=== PATIENT | male | born 1965 ===

== ENCOUNTER 2016-06-22 13:34 | Emergency (ER) | payer SELFPAY ==
[~2016-06-22] VITALS: Wt 80.0 kg
--- NOTE | 2016-06-22 14:24 | RADRPT ---
PROCEDURE: CT Brain without contrast. CLINICAL INDICATION: Head injury after a fall 1 week ago. TECHNIQUE: A CT of the brain was performed on a high-resolution CT scanner utilizing a low dose te chnique with axial imaging from the skull base through the vertex without IV contrast. Multiplanar reformatted images were made. Images were reviewed on a PACS workstation. The CTDIvol is 44.3 mGy and the DLP is 620.2 mGycm. One or more of the following dose reduction techniques were used: - Automated exposure control. - Adjustment of the mA and/or kV according to patient size. Use of iterative reconstruction technique. COMPARISON: None FINDINGS: The fourth ventricle is normal in size. The third and lateral ventricles are normal in size and con figuration. The brain parenchyma is normal. The visible portions of the globes and extraocular muscles are normal. The paranasal sinuses are cl ear. The mastoid air cells and internal auditory canals are normal. The bony calvarium is intact. IMPRESSION: 1. Negative CT scan of the brain without contrast. RPTAT:AAJJ Physician Jaspal Date Time Electronically viewed and signed by Physician Jaspal on 06/22/2016 14:24 HAILE/
[2016-06-22] MEDS ORDERED: ACETAMINOPHEN 500 MG TAB PO STA (14:36)
[2016-06-22] MEDS ORDERED: ACET500C5 PO (15:00)
[2016-06-22] MEDS ORDERED: CEPH-443 PO (15:01)
--- NOTE | 2016-06-22 15:17 | ERD ---
ER Documentation Chief Complaint Date/Time DATE: 06/22/16 TIME: 15:09 Chief Complaint hit on head 5 days ago with laceration to right orbit. no bleeding noted. HPI Patient is a 51-year-old male who presents to the emergency department with head pain and laceration to his upper left orbital region 1 week. 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 Patient states that he was breaking down the dry wall and his ladder slipped causing his to fall. Patient states he did not receive any medical attention. Patient states he has been putting aloe vera to his laceration. Patient denies any fevers or chills. Patient denies any nausea, vomiting, blurry vision, excessive sleepiness, loss of consciousness. Patient does report "feeling warm inside of his head". Patient denies any chest pain, shortness of breath, diaphoresis, neck pain, back pain. Patient is ambulating without any difficulty. Patient is speaking in full sentences.. Patient does not recall last tetanus vaccination. ROS All systems reviewed and are negative except as per history of present illness. Medications Home Meds Active Scripts Cephalexin* (Keflex*) 500 Mg Capsule, 500 MG PO QID for 7 Days, CAP Prov:MEHRAN CULLEN PA-C 06/22/16 Acetaminophen* (Tylophen*) 500 Mg Capsule, 1 CAP PO Q6H Y for PAIN AND OR ELEVATED TEMP, #20 CAP Prov:MEHRAN CULLEN PA-C 06/22/16 PMhx/Soc Medical and Surgical Hx: pt denies Medical Hx, pt denies Surgical Hx Hx Alcohol Use: No Hx Substance Use: No Hx Tobacco Use: Yes (5 CIGS/DAY) Smoking Status: Current every day smoker FmHx Family History: No diabetes Physical Exam Vitals Vital Signs Date Time Temp Pulse Resp B/P Pulse Ox O2 Delivery O2 Flow Rate FiO2 06/22/16 15:19 98.9 76 18 Room Air 06/22/16 13:37 98.9 74 20 Physical Exam GENERAL: Well-developed, well-nourished male. Appears in no acute distress. Speaking in full sentences. HEAD: Normocephalic, atraumatic. No deformities or ecchymosis. No scalp hematomas noted. Nontender to palpation of bilateral mastoid processes. No ecchymosis noted to bilateral mastoid processes. No tender to palpation of facial bones. EYE: Pupils equal, round, and reactive to light. EOMs intact. No conjunctival erythema. No eye discharge. 4 cm centimeter open, healing by secondary closure to the left upper, outer orbital rim. Granulated tissue noted in between laceration. Minimal discharge noted. No surrounding erythema, warmth or swelling noted. ENT: External ear without any masses or tenderness. Auditory canals clear bilaterally. No hemotympanum noted bilaterally. TM visualized bilaterally, non -erythematous, non-bulging. Nasal mucosa pink with no discharge. Oropharynx is pink without any tonsillar erythema or exudates. No uvula deviation. No kissing tonsils. No septal hematoma or septal ecchymosis over nasal bridge. NECK: Supple. No meningismus. Normal ROM of the neck. No cervical midline tenderness. LUNG: Clear to auscultation bilaterally. No rhonchi, wheezing, rales or coarse breath sounds. HEART: Regular rate and rhythm. No murmurs, rubs or gallops. BACK: No midline tenderness. EXTREMITIES: Equal pulses bilaterally. No peripheral clubbing, cyanosis or edema. No unilateral leg swelling. NEUROLOGIC: Alert and oriented x3, cooperative. Mood and affect appropriate to situation. Cranial nerves II through XII are grossly intact. Normal speech. Motor exam: 5/5 strength in upper and lower extremities. Sensory exam: Sensation intact to light touch on all four extremities. Cerebellar function exam: No dysmetria on [id number] test. Steady gait. No pronator drift. SKIN: Normal color. Warm and dry. No rashes or lesions. Results 24 hrs Current Medications Medications (Trade) Dose Ordered Sig/Tadeo Route PRN Reason Start Time Stop Time Status Last Admin Dose Admin Acetaminophen (Tylenol Tab) 1,000 mg ONCE STAT PO 06/22/16 14:36 06/22/16 14:37 DC 06/22/16 14:43 Diphtheria/ Tetanus/Acell Pertussis (Adacel) 0.5 ml ONCE ONCE IM* 06/22/16 15:30 06/22/16 15:30 DC 06/22/16 15:17 Procedures/MDM ED COURSE: The patient was stable throughout ED course. I kept the patient and/or family informed of laboratory and diagnostic imaging results throughout the ED course. DIAGNOSTIC IMAGING: Read by radiologist. DIAGNOSTIC IMAGING REPORT Patient: PEEWEE GREER : 1965 Age: 51 Sex: M [id number] DOS: 06/22/16 1405 Ordering MD: MEHRAN CULLEN PA-C Location: [facility] Room/Bed: PROCEDURE: CT Brain without contrast. CLINICAL INDICATION: Head injury after a fall 1 week ago. TECHNIQUE: A CT of the brain was performed on a high-resolution CT scanner utilizing a low dose technique with axial imaging from the skull base through the vertex without IV contrast. Multiplanar reformatted images were made. Images were reviewed on a PACS workstation. The CTDIvol is 44.3 mGy and the DLP is 620.2 mGycm. One or more of the following dose reduction techniques were used: - Automated exposure control. - Adjustment of the mA and/or kV according to patient size. Use of iterative reconstruction technique. COMPARISON: None FINDINGS: The fourth ventricle is normal in size. The third and lateral ventricles are normal in size and configuration. The brain parenchyma is normal. The visible portions of the globes and extraocular muscles are normal. The paranasal sinuses are clear. The mastoid air cells and internal auditory canals are normal. The bony calvarium is intact. IMPRESSION: 1. Negative CT scan of the brain without contrast. RPTAT:AAJJ Physician Jaspal Date Time Electronically viewed and signed by Physician Jaspal on 06/22/2016 14:24 JM/ CC: MEHRAN CULLEN PA-C PROCEDURES: None. MEDICATIONS GIVEN: Tylenol, Tdap vaccine Patient tolerated medication well with no adverse reactions. Patient reported improvement in pain. MEDICAL DECISION MAKING: This is a 51-year-old male who presents with a headache after fall injury 1 week ago approximately a height of 2 stories. Patient also has a laceration to the left upper orbital rim that he sustained during this fall injury. Vital signs were reviewed. Patient was afebrile. Patient is not hypoxic. Full neurological exam was normal. Given the mechanism of the patient's fall injury , CT brain was obtained. CT brain was negative. Patient's laceration was cleaned by isotope technician using Betadine. At this time there is no indication for suture repair given that the laceration occurred 1 week ago. The laceration will likely heal using secondary intention. Patient will be given antibiotics due to slight purulent discharge noted in the wound. Given these findings, the patient;s presentation is most consistent with headaches status post traumatic injury and laceration. I have a much lower clinical concern for intracranial hemorrhage, midline shift, meningitis, temporal arteritis, intracranial mass, tension headache, migraine headache, cluster headache, facial bone fracture. PRESCRIPTIONS: Tylenol, Keflex DISCHARGE: At this time, patient is stable for discharge and outpatient management. Strict head injury return precautions discussed with the patient. I have encouraged the patient to hydrate well. I have instructed the patient to follow-up with his /her primary care physician in 1-2 days. If symptoms persist, patient may need to see a specialist for further examinations and testing. I have instructed the patient to promptly return to the ER at any time for any new or worsening symptoms including increased increased pain, fever, nausea, vomiting, numbness, neck stiffness, visual changes, weakness or LOC. The patient and/or family expressed understanding of and agreement with this plan. All questions were answered. Home care instructions were provided. Departure Diagnosis: Primary Impression: Headache Headache type: unspecified Headache chronicity pattern: unspecified pattern Intractability: not intractable Qualified Code: R51 - Nonintractable headache, unspecified chronicity pattern, unspecified headache type Additional Impression: Laceration Condition: Stable Patient Instructions: Self-Care for Headaches, Laceration, All Referrals: [facility] YOU HAVE RECEIVED A MEDICAL SCREENING EXAM AND THE RESULTS INDICATE THAT YOU DO NOT HAVE A CONDITION THAT REQUIRES URGENT TREATMENT IN THE EMERGENCY DEPARTMENT. FURTHER EVALUATION AND TREATMENT OF YOUR CONDITION CAN WAIT UNTIL YOU ARE SEEN IN YOUR DOCTORS OFFICE WITHIN THE NEXT 1-2 DAYS. IT IS YOUR RESPONSIBILITY TO MAKE AN APPOINTMENT FOR FOLOW-UP CARE. IF YOU HAVE A PRIMARY DOCTOR --you should call your primary doctor and schedule an appointment IF YOU DO NOT HAVE A PRIMARY DOCTOR YOU CAN CALL OUR PHYSICIAN REFERRAL HOTLINE AT IF YOU CAN NOT AFFORD TO SEE A PHYSICIAN YOU CAN CHOSE FROM THE FOLLOWING [facility] [address] [facility] [address] [facility] [address] [facility] [address] [facility] [address] [facility]. [facility]. [address] [facility]. [facility] YOU HAVE RECEIVED A MEDICAL SCREENING EXAM AND THE RESULTS INDICATE THAT YOU DO NOT HAVE A CONDITION THAT REQUIRES URGENT TREATMENT IN THE EMERGENCY DEPARTMENT. FURTHER EVALUATION AND TREATMENT OF YOUR CONDITION CAN WAIT UNTIL YOU ARE SEEN IN YOUR DOCTORS OFFICE WITHIN THE NEXT 1-2 DAYS. IT IS YOUR RESPONSIBILITY TO MAKE AN APPOINTMENT FOR FOLOW-UP CARE. IF YOU HAVE A PRIMARY DOCTOR --you should call your primary doctor and schedule and appointment IF YOU DO NOT HAVE A PRIMARY DOCTOR YOU CAN CALL OUR PHYSICIAN REFERRAL HOTLINE AT . IF YOU CAN NOT AFFORD TO SEE A PHYSICIAN YOU CAN CHOSE FROM THE FOLLOWING [facility] INSTITUTIONS: [facility] [address] [place] [address] [facility] [address] [place] [address] [facility] [address] [place] [address] Additional Instructions: Call your primary care doctor TOMORROW for an appointment during the next 1-2 days.See the doctor sooner or return here if your condition worsens before your appointment time. Advised to complete full course of antibiotics as prescribed. Return the emergency department for any new or worsening redness, swelling, warmth, fever or chills. Head injury return precautions were discussed with the patient. Patient was advised to return the emergency department for any severe pain, blurry vision, nausea, vomiting, acute confusion, excessive sleepiness or loss consciousness. MEHRAN CULLEN PA-C June 22, 2016 15:17
[2016-06-22 15:19] VITALS: PULSE 76; RESP 18; TEMP 98.9
[2016-06-22] MEDS ORDERED: DIPHTH/TET/ACEL PERTUSS (ADULT) 0.5 ML VIAL IM* ONE (15:30)
== END 2016-06-22 15:21 | disposition home or self-care (01) ==
LOC: FTE 13:34
DX: R51 Headache (principal); F17.210 Nicotine dependence, cigarettes, uncomplicated; W17.89XA Other fall from one level to another, initial encounter; Y92.89 Other specified places as the place of occurrence of the external cause; Z23 Encounter for immunization
CPT/HCPCS: 70450; 90471; 90715